=== PATIENT | male | born 2000 | race African-American/Black ===

== ENCOUNTER 2025-04-20 11:51 | Emergency (ER) | payer SELFPAY ==
[~2025-04-20] VITALS: Ht 175.3 cm; Wt 69.0 kg
[2025-04-20 11:55] VITALS: TEMP 37.1; O2SAT 100
[2025-04-20 11:56] VITALS: O2SAT 98
[2025-04-20] MEDS ORDERED: IBUP-2029 MT (14:00)
[2025-04-20 14:25] VITALS: BP 136/90; PULSE 61; RESP 16
[2025-04-20] MEDS: IBUPROFEN 600MG TABLET PO ONE (14:25)
== END 2025-04-20 14:29 | disposition home or self-care (01) ==
LOC: ER 11:51
DX: S62.330A Displaced fracture of neck of second metacarpal bone, right hand, initial encounter for closed fracture (principal); J45.909 Unspecified asthma, uncomplicated; Z88.0 Allergy status to penicillin; X58.XXXA Exposure to other specified factors, initial encounter; Y93.89 Activity, other specified; Y92.89 Other specified places as the place of occurrence of the external cause; Y99.8 Other external cause status
CPT/HCPCS: 99283; 73120; 29130; A6449